=== PATIENT | female | born 1955 | race Hispanic/Latino ===

== ENCOUNTER 2016-12-16 12:18 | Inpatient (IN) | payer OTHER ==
[~2016-12-16] VITALS: Ht 157.5 cm; Wt 75.1 kg
[2016-12-16] MEDS ORDERED: BRIL90TA PO (12:35)
[2016-12-16] MEDS ORDERED: NOVOINJ3 SC (12:35)
[2016-12-16] MEDS ORDERED: NEUR800T PO (12:35)
[2016-12-16] MEDS ORDERED: COZA50TA PO (12:35)
[2016-12-16] MEDS ORDERED: CORE25TA PO (12:35)
[2016-12-16] MEDS ORDERED: ASPI1TAB PO (12:35)
[2016-12-16] MEDS ORDERED: BACL10TA2 PO (12:35)
[2016-12-16] MEDS ORDERED: INSULADS INJ (12:35)
[2016-12-16] MEDS ORDERED: RANO5TAB PO (12:35)
[2016-12-16] MEDS ORDERED: NITR4TASL SL (12:35)
[2016-12-16] MEDS ORDERED: LOSA50TA20 PO (12:35)
[2016-12-16] MEDS ORDERED: CARV25TA PO (12:35)
[2016-12-16] MEDS ORDERED: LIPI20TA PO (12:35)
[2016-12-16] MEDS ORDERED: ASPIRIN 81 MG CHEW TABLET PO ONE (13:15)
[2016-12-16] MEDS ORDERED: ONDANSETRON 4MG/2ML VIAL (J2405) IV ONE (13:15)
[2016-12-16] MEDS ORDERED: NS 500 ML IV ONE (13:15)
[2016-12-16 14:19] LABS: BASO % 0.4 % (0.0-1.0); EOS # 0.1 10^3/uL (0.0-0.50); EOS % 0.6 % (0.0-3.0); IMMATURE GRANULOCYTE % 0.3 % (0-0); LYMPH # 2.9 10^3/uL (1.5-4.5); LYMPH % 25.7 % (24.0-44.0); MEAN CORPUSCULAR HEMOGLOBIN 28.3 pg (27.0-33.0); MEAN CORPUSCULAR HGB CONC 32.6 g/dl (32.0-36.5); MEAN CORPUSCULAR VOLUME 86.7 fl (80.0-96.0); MONO # 0.8 10^3/uL (0.0-0.8); MONO % 7.2 % (0.0-5.0); NEUTROPHILS # 7.4 10^3/uL (1.8-7.7); NEUTROPHILS % 65.8 % (36.0-66.0); PLATELET COUNT, AUTOMATED 430 10^3/uL (150-450); RED CELL DISTRIBUTION WIDTH 15.9 % (11.5-14.5); WHITE BLOOD COUNT 11.2 10^3/uL (4.0-10.0)
[2016-12-16 14:21] LABS: INR 1.06
[2016-12-16 14:54] LABS: ALBUMIN 3.1 GM/DL (3.2-5.2); ALBUMIN/GLOBULIN RATIO 0.63 (1.00-1.93); ALKALINE PHOSPHATASE 167 U/L (45-117); ALT/SGPT 22 U/L (12-78); ANION GAP 9 MEQ/L (8-16); AST/SGOT 16 U/L (15-37); BILIRUBIN,DIRECT 0.1 MG/DL (0.0-0.2); BLOOD UREA NITROGEN 15 MG/DL (7-18); CALCIUM LEVEL 8.4 MG/DL (8.8-10.2); CARBON DIOXIDE LEVEL 23 MEQ/L (21-32); CHLORIDE LEVEL 105 MEQ/L (98-107); CREATININE FOR GFR 0.74 MG/DL (0.55-1.02); FREE T4 1.39 NG/DL (0.76-1.46); GLOMERULAR FILTRATION RATE > 60.0 (>45); GLUCOSE, FASTING 123 MG/DL (80-110); POTASSIUM SERUM 4.2 MEQ/L (3.5-5.1); SODIUM LEVEL 137 MEQ/L (136-145)
[2016-12-16 15:00] LABS: BILIRUBIN,TOTAL 0.5 MG/DL (0.2-1.0)
--- NOTE | 2016-12-16 15:06 | REP ---
PORTABLE CHEST: AP portable view of the chest is performed. There are no prior studies for comparison. No infiltrate is seen. There appears to be mild bibasilar fibroatelectatic change. Heart is not significantly enlarged. Mediastinal silhouette is unremarkable. IMPRESSION: Bibasilar fibroatelectatic change without acute infiltrate. Signed by Bo Castillo MD 12/16/2016 04:13 P
[2016-12-16] MEDS ORDERED: ISOVUE-370 76% 100ML VIAL (Q9967) As Ordered ONE (15:08)
--- NOTE | 2016-12-16 16:03 | REP ---
CT abdomen and pelvis with IV but without oral contrast: History: Abdominal pain. CT contrast dose: 100 ml of intravenous Isovue 370. CT findings: Preliminary digital audit consultant radiograph is unremarkable. The patient was apparently unable to raise the arms above her head. The lung bases show a few areas of alveolar opacity in the right lower lobe and mild linear fibrosis in the left base. There is a granulomatous calcification in the left lower lobe. The liver and the spleen are normal in size, homogeneous in texture. The gallbladder and the pancreas are unremarkable. No adrenal lesion is seen. The kidneys enhance symmetrically are morphologically intact bilaterally. A normal air-filled appendix is visible in the right lower quadrant. Normal caliber aorta is seen. No uterine or ovarian abnormality is seen. Urinary bladder is intact. No abdominal wall defect is observed. Bone window settings show no bony destructive lesion. Impression: No acute intra-abdominal abnormality. Normal appendix seen. Patchy alveolar opacities in the right lower lobe of the lung could conceivably be inflammatory, although they are quite mild. Signed by Moises Winchester MD 12/16/2016 04:26 P
[2016-12-16] MEDS ORDERED: cefTRIAXone SOD 1 GM in D5W 50 ML IV ONE (16:15)
[2016-12-16] MEDS ORDERED: AZITHROMYCIN INJ 500 MG, VIAL MATE ADAPTER 1 EACH in D5W 250 ML IV ONE (16:15)
[2016-12-16] MEDS ORDERED: GABA-282 PO (16:18)
[2016-12-16] MEDS ORDERED: IPRATROPIUM 0.5MG/ALBUTEROL 2.5MG INH SOL UD 3ML (DUONEB)(J7620) NEB ONE (16:30)
[2016-12-16] MEDS: NS 1,000 ML IV SCH (18:02)
[2016-12-16] MEDS ORDERED: NITROGLYCERIN 0.4 MG SUBL TABLET SL PRN (18:15)
[2016-12-16] MEDS ORDERED: ACETAMINOPHEN TAB 650MG DOSE (2X325MG) PO PRN (18:15)
[2016-12-16] MEDS ORDERED: GLUCAGON FOR INJ 1 MG VIAL (J1610) SC PRN (18:45)
[2016-12-16] MEDS ORDERED: GLUCOSE 4 GM CHEW TABLET PO PRN (18:45)
[2016-12-16] MEDS ORDERED: DEXTROSE 50% 50 ML SYRINGE IV PRN (18:45)
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
[2016-12-16] MEDS: HumaLOG INSULIN (NovoLOG) PER UNIT SC SCH (21:00)
[2016-12-16] MEDS: CARVedilol 12.5 MG TAB PO SCH (21:00)
[2016-12-16] MEDS: TICAGRELOR 90 MG TABLET (BRILINTA) PO SCH (21:00)
[2016-12-16] MEDS: GABAPENTIN 300 MG CAP PO SCH (21:00)
[2016-12-16] MEDS: BACLOFEN 10 MG TAB PO SCH (21:00)
[2016-12-16] MEDS ORDERED: LEVEMIR (INSULIN DETEMIR) 1 UNITS/0.01ML SC SCH (21:00)
[2016-12-16] MEDS: METOCLOPRAMIDE INJ 10MG/2ML VIAL (J2765) IV PRN (22:20)
[2016-12-17 01:15] VITALS: BP 120/57
[2016-12-17] MEDS: RANOLAZINE 500 MG ER TAB PO SCH ×3 (01:48→20:57)
--- NOTE | 2016-12-17 05:39 | ECGEPIP ---
Stationary ECG Study [facility] - ED Test Date: 2016-12-16 Pat Name: MARIANGEL MEDLEY Department: Room: [place] [address] Gender: F Keycase Assembler: linda : [id number] Requested By: Calin Suarez Order Number: [id number] Reading MD: Calin Irvin Measurements Intervals [place] Rate: 81 P: 68 AR: 139 QRS: 31 QRSD: 73 T: 127 QT: 364 QTc: 424 Interpretive Statements SINUS RHYTHM ST DEVIATION AND MODERATE T-WAVE ABNORMALITY, CONSIDER LATERAL ISCHEMIA NO PRIORS Electronically Signed On 12-17-2016 5:38:54 EDT by Calin Irvin
[2016-12-17 06:00] VITALS: BP 136/63
[2016-12-17 06:01] LABS: MEAN CORPUSCULAR HEMOGLOBIN 27.8 pg (27.0-33.0); MEAN CORPUSCULAR HGB CONC 31.6 g/dl (32.0-36.5); RED CELL DISTRIBUTION WIDTH 16.1 % (11.5-14.5); WHITE BLOOD COUNT 12.6 10^3/uL (4.0-10.0)
[2016-12-17 06:18] LABS: ANION GAP 9 MEQ/L (8-16); BLOOD UREA NITROGEN 14 MG/DL (7-18); CALCIUM LEVEL 8.1 MG/DL (8.8-10.2); CARBON DIOXIDE LEVEL 24 MEQ/L (21-32); CHLORIDE LEVEL 107 MEQ/L (98-107); CREATININE FOR GFR 0.78 MG/DL (0.55-1.02); GLOMERULAR FILTRATION RATE > 60.0 (>45); GLUCOSE, FASTING 61 MG/DL (80-110); POTASSIUM SERUM 3.6 MEQ/L (3.5-5.1); SODIUM LEVEL 140 MEQ/L (136-145)
[2016-12-17] MEDS ORDERED: HumaLOG INSULIN (NovoLOG) PER UNIT SC SCH (07:30)
[2016-12-17] MEDS: HumaLOG INSULIN (NovoLOG) PER UNIT SC SCH ×4 (08:00→21:00)
[2016-12-17] MEDS ORDERED: ACETAMINOPHEN 325 MG TAB PO ONE (09:00)
[2016-12-17] MEDS: NS 1,000 ML IV SCH ×2 (10:14→20:56)
[2016-12-17] MEDS: METOCLOPRAMIDE INJ 10MG/2ML VIAL (J2765) IV PRN ×2 (10:14→20:57)
[2016-12-17] MEDS: ASPIRIN 81 MG ENTERIC TAB PO SCH (10:15)
[2016-12-17] MEDS: TICAGRELOR 90 MG TABLET (BRILINTA) PO SCH ×2 (10:15→20:57)
[2016-12-17] MEDS: ENOXAPARIN 40 MG/0.4 ML SYRINGE (J1650) SC SCH (10:15)
[2016-12-17] MEDS: GABAPENTIN 300 MG CAP PO SCH ×3 (10:15→20:57)
[2016-12-17] MEDS: BACLOFEN 10 MG TAB PO SCH ×3 (10:16→20:57)
[2016-12-17] MEDS: ATORVASTATIN 20 MG TAB PO SCH (10:16)
[2016-12-17] MEDS: LOSARTAN 50 MG TAB PO SCH (10:19)
[2016-12-17] MEDS: CARVedilol 12.5 MG TAB PO SCH ×2 (10:19→20:57)
[2016-12-17] MEDS: PANTOPRAZOLE 40MG INJ (PROTONIX) (C9113) IV SCH (10:20)
--- NOTE | 2016-12-17 10:59 | IPNPDOC ---
Subjective Date Seen The patient was seen on 12/17/16. Subjective Chief Complaint/HPI The patient is a 61-year-old female admitted with a reason for visit of Diarrhea. Events since last encounter She states that she did have one episode of abdominal pain with nausea and vomiting last night. She was given 1 dose of Reglan and this has resolved since. She does have a small headache this morning, therefore this will be treated with Tylenol. We will continue with IV fluids as well. Otherwise, she denies having any nausea at this time, she had no additional episodes of vomiting. Upon further questioning, she states she has never had any issues with chewing or swallowing her food, she does not choke or cough while eating, and I suspect that she is not aspirating, but rather most likely had a violent episode of vomiting in the emergency department. General: Denies: Normal Appetite Constitutional: Reports: Malaise, Weakness, Fatigue, Denies: Chills, Fever, Night Sweats ENT: Reports: Head Aches, Denies: Sore Throat Skin: Denies: Rash, Lesions, Bruising Pulmonary: Denies: Dyspnea, Cough, Pleuritic Chest Pain Cardiovascular: Denies: Chest Pain, Palpitations, Orthopnea, Lt Headedness Gastrointestinal: Reports: Nausea, Vomiting, Abdominal Pain, Other Symptoms ( she had loose stool yesterday, however she has not had a bowel movement since that time.), Denies: Diarrhea, Constipation Genitourinary: Denies: Dysuria, Frequency, Incontinence Neurological: Reports: Weakness Psych: Reports: Mood Normal, Denies: Anxiety, Depression Objective Physical Examination General Exam: Positive: Alert, Cooperative, Mild Distress Eye Exam: Positive: Conjunctiva & lids normal, EOMI, Negative: Sclera icteric ENT Exam: Positive: Atraumatic, Mucous membr. moist/pink, Pharynx Normal Neck Exam: Positive: Supple, Negative: JVD Chest Exam: Positive: Clear to auscultation, Normal air movement, Negative: Rales, Rhonchi, Wheezing, Diminished Heart Exam: Positive: Rate Normal, Regular Rhythm, Negative: Murmurs, Rubs Abdomen Exam: Positive: BS Hypoactive, Soft, Tenderness (only minimal generalized tenderness in the abdomen today), Negative: Hepatospenomegaly Extremity Exam: Positive: Normal pulses, Negative: Clubbing, Cyanosis, Edema Skin Exam: Positive: Nl turgor and temperature, Negative: Breakdown, Lesion Neuro Exam: Positive: Other (chronic weakness in the bilateral lower extremities and left upper extremity from multiple CVAs and advanced multiple sclerosis) Psych Exam: Positive: Mental status NL, Mood NL, Oriented x 3 Assessment /Plan Problems (1) Gastritis Status: Acute Problem Text: The patient reports that she is tolerating some liquids by mouth , therefore we'll switch her diet to full liquids, and then she can advance as tolerated. We will continue with Reglan as needed for nausea. (2) Vomiting Status: Acute (3) Abdominal pain Status: Acute (4) Loose stools Status: Acute Problem Text: GI panel is still pending as she was not able to produce a sample during the night. (5) Pneumonia Status: Resolved Problem Text: It is questionable as to whether she actually had an aspiration event. She does not complain of any chest pain, shortness of breath, or cough. She is 100% on room air this morning. She has never had any trouble chewing or swallowing her food, she does not cough while eating, and she does not have a history of choking on food. Apparently the official read from the radiologist is different than the ED read on the chest x-ray that was obtained yesterday, now the official read states: Bibasilar fibroatelectatic changes with no acute infiltrate. In the absence of symptoms, I do not even think it is necessary to repeat a chest x-ray. We will allow her to eat what she can tolerate and continue to monitor. (6) Chest pain Status: Resolved (7) Diabetes mellitus with insulin therapy Status: Chronic Problem Text: Because she is not eating well, we will hold her Lantus, and only do sliding scale coverage before meals and at bedtime. (8) Multiple sclerosis Status: Chronic Problem Text: She has attempted multiple drugs for multiple sclerosis over the years, Which have given her any relief, many of which have had intolerable side effects. She is no longer taking any treatment for this. (9) Presence of stent in coronary artery in patient with coronary artery disease Status: Chronic Problem Text: Continue with aspirin, Ranexa, nitroglycerin as needed, and Brilinta (10) Peripheral vascular disease Status: Chronic (11) History of cerebrovascular accident Status: Chronic Problem Text: Continue with atorvastatin, although I would recommend having a discussion with her about moving to a high intensity statin, it is unclear as to why she is on lower dose at this time. (12) History of myocardial infarction Status: Chronic Problem Text: Continue with carvedilol (13) Osteoporosis Status: Chronic (14) Hypertension Status: Chronic Problem Text: Continue with losartan and carvedilol with hold parameters (15) Trigeminal neuralgia of right side of face Status: Chronic Problem Text: Continue with gabapentin Plan/VTE VTE Prophylaxis Ordered?: Yes (Lovenox) VS, I&O, 24H, Fishbone Vital Signs/I&O Vital Signs Date Time Temp Pulse Resp B/P (MAP) Pulse Ox O2 Delivery O2 Flow Rate FiO2 12/17/16 10:19 135/68 12/17/16 10:19 83 12/17/16 06:00 97.8 16 100 Room Air I&O- Last 24 Hours up to 6 AM 12/18/16 06:00 Intake Total 0 ml Output Total 0 ml Balance 0 ml Laboratory Data 24H LABS Laboratory Tests 2 12/16/16 13:56: Immature Granulocyte % (Auto) 0.3H, White Blood Count 11.2H, Red Blood Count 4.21, Hemoglobin 11.9L, Hematocrit 36.5, Mean Corpuscular Volume 86.7, Mean Corpuscular Hemoglobin 28.3, Mean Corpuscular Hemoglobin Concent 32.6, Red Cell Distribution Width 15.9H, Platelet Count 430, Neutrophils (%) (Auto) 65.8, Lymphocytes (%) (Auto) 25.7, Monocytes (%) (Auto) 7.2H, Eosinophils (%) (Auto) 0.6, Basophils (%) (Auto) 0.4, Neutrophils # (Auto) 7.4, Lymphocytes # (Auto) 2.9, Monocytes # (Auto) 0.8, Eosinophils # (Auto) 0.1, Basophils # (Auto) 0.0, Immature Granulocyte # (Auto) 0.0, Nucleated Red Blood Cells % (auto) 0.0, Prothrombin Time 13.9, Prothromb Time International Ratio 1.06, Activated Partial Thromboplast Time 27.3, Anion Gap 9, Glomerular Filtration Rate > 60.0, Calcium Level 8.4L, Aspartate Amino Transf (AST/SGOT) 16, Alanine Aminotransferase (ALT/SGPT) 22, Alkaline Phosphatase 167H, Total Bilirubin 0.5, Direct Bilirubin 0.1, Total Creatine Kinase 161, Creatine Kinase MB 2.2, Creatine Kinase MB Relative Index 1.36, Troponin I < 0.02, Total Protein 8.0, Albumin 3.1L, Albumin/Globulin Ratio 0.63L, Lipase 54L, Thyroid Stimulating Hormone (TSH) 2.430, Free Thyroxine 1.39 12/16/16 21:49: Bedside Glucose (Misc Panel) 126H 12/17/16 05:24: Anion Gap 9, Glomerular Filtration Rate > 60.0, Calcium Level 8.1L, Estimated Mean Plasma Glucose 197H, Hemoglobin A1c 8.5H, Blood Urea Nitrogen 14, Creatinine 0.78, Sodium Level 140, Potassium Level 3.6, Chloride Level 107, Carbon Dioxide Level 24 12/17/16 06:51: Bedside Glucose (Misc Panel) 64L 12/17/16 07:40: Bedside Glucose (Misc Panel) 95 CBC/BMP Laboratory Tests 12/16/16 13:56 Red Blood Count 4.21, Mean Corpuscular Volume 86.7, Mean Corpuscular Hemoglobin 28.3, Mean Corpuscular Hemoglobin Concent 32.6, Red Cell Distribution Width 15.9 H, Neutrophils (%) (Auto) 65.8, Lymphocytes (%) (Auto) 25.7, Monocytes (%) (Auto) 7.2 H, Eosinophils (%) (Auto) 0.6, Basophils (%) (Auto) 0.4, Neutrophils # (Auto) 7.4, Lymphocytes # (Auto) 2.9, Monocytes # (Auto) 0.8, Eosinophils # ( Auto) 0.1, Basophils # (Auto) 0.0 12/17/16 05:24 Red Blood Count 3.67 L, Mean Corpuscular Volume 88.0, Mean Corpuscular Hemoglobin 27.8, Mean Corpuscular Hemoglobin Concent 31.6 L, Red Cell Distribution Width 16.1 H, Calcium Level 8.1 L Microbiology Microbiology 12/16/16 Blood Culture, Received Pending 12/16/16 Blood Culture, Received Pending LAZARA ZUNIGA DO Dec 17, 2016 10:59
[2016-12-17 14:00] VITALS: BP 135/65
[2016-12-17] MEDS ORDERED: LevoFLOXacin IV 750 MG in APPROPRIATE DILUENT 1 EA IV SCH (18:00)
[2016-12-17 22:00] VITALS: BP 131/60
[2016-12-18 06:00] VITALS: BP 148/74
[2016-12-18 06:20] LABS: MEAN CORPUSCULAR HEMOGLOBIN 28.2 pg (27.0-33.0); MEAN CORPUSCULAR HGB CONC 31.9 g/dl (32.0-36.5); MEAN CORPUSCULAR VOLUME 88.5 fl (80.0-96.0); WHITE BLOOD COUNT 10.2 10^3/uL (4.0-10.0)
[2016-12-18 06:39] LABS: ANION GAP 8 MEQ/L (8-16); BLOOD UREA NITROGEN 8 MG/DL (7-18); CALCIUM LEVEL 8.3 MG/DL (8.8-10.2); CARBON DIOXIDE LEVEL 24 MEQ/L (21-32); CHLORIDE LEVEL 110 MEQ/L (98-107); CREATININE FOR GFR 0.83 MG/DL (0.55-1.02); GLOMERULAR FILTRATION RATE > 60.0 (>45); GLUCOSE, FASTING 189 MG/DL (80-110); POTASSIUM SERUM 4.2 MEQ/L (3.5-5.1); SODIUM LEVEL 142 MEQ/L (136-145)
[2016-12-18] MEDS: GABAPENTIN 300 MG CAP PO SCH (08:31)
[2016-12-18] MEDS: PANTOPRAZOLE 40MG INJ (PROTONIX) (C9113) IV SCH (08:31)
[2016-12-18] MEDS: CARVedilol 12.5 MG TAB PO SCH (08:32)
[2016-12-18] MEDS: ASPIRIN 81 MG ENTERIC TAB PO SCH (08:32)
[2016-12-18] MEDS: ATORVASTATIN 20 MG TAB PO SCH (08:32)
[2016-12-18] MEDS: BACLOFEN 10 MG TAB PO SCH (08:32)
[2016-12-18 08:33] VITALS: BP 181/85
[2016-12-18] MEDS: LOSARTAN 50 MG TAB PO SCH (08:33)
[2016-12-18] MEDS: TICAGRELOR 90 MG TABLET (BRILINTA) PO SCH (08:33)
[2016-12-18] MEDS: ENOXAPARIN 40 MG/0.4 ML SYRINGE (J1650) SC SCH (08:34)
[2016-12-18] MEDS: HumaLOG INSULIN (NovoLOG) PER UNIT SC SCH ×2 (08:34→12:18)
[2016-12-18] MEDS: RANOLAZINE 500 MG ER TAB PO SCH (08:34)
[2016-12-18] MEDS: NS 1,000 ML IV SCH (08:35)
[2016-12-18] MEDS ORDERED: LEVEMIR (INSULIN DETEMIR) 1 UNITS/0.01ML SC SCH (09:00)
[2016-12-18 10:24] VITALS: BP 156/72
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
== END 2016-12-18 12:28 | disposition home or self-care (01) | DRG 241 ==
LOC: M ED 12:18 → M ED INP 17:40 → M MSPAV 12-17 01:12
PROVIDERS: ADMIT Internal Medicine; ATTEND Internal Medicine Nephrology
DX: K29.00 Acute gastritis without bleeding (principal); G35 Multiple sclerosis; I10 Essential (primary) hypertension; I25.10 Atherosclerotic heart disease of native coronary artery without angina pectoris; E11.9 Type 2 diabetes mellitus without complications; Z79.4 Long term (current) use of insulin; I25.2 Old myocardial infarction; I73.9 Peripheral vascular disease, unspecified; Z86.73 Personal history of transient ischemic attack (TIA), and cerebral infarction without residual deficits; Z79.82 Long term (current) use of aspirin; Z79.899 Other long term (current) drug therapy; G50.0 Trigeminal neuralgia; M81.0 Age-related osteoporosis without current pathological fracture; Z95.2 Presence of prosthetic heart valve; Z88.2 Allergy status to sulfonamides

== ENCOUNTER 2017-04-28 21:39 | Inpatient (IN) | payer OTHER ==
[2017-04-28] MEDS: ONDANSETRON 4MG/2ML VIAL (J2405) IV (23:22)
[2017-04-28] MEDS: MORPHINE 4 MG/ML 1ML VIAL (J2270) IV (23:22)
[2017-04-28] MEDS: NS 500 ML IV (23:25)
[2017-04-28 23:39] LABS: BASO # 0.1 10^3/uL (0.0-0.2); BASO % 0.5 % (0.0-1.0); EOS # 0.2 10^3/uL (0.0-0.50); EOS % 1.6 % (0.0-3.0); HEMATOCRIT 36.3 % (36.0-47.0); HEMOGLOBIN 12.1 g/dl (12.0-16.0); IMMATURE GRANULOCYTE % 0.4 % (0-3.0); LYMPH # 2.7 10^3/uL (1.5-4.5); LYMPH % 20.4 % (24.0-44.0); MEAN CORPUSCULAR HEMOGLOBIN 29.4 pg (27.0-33.0); MEAN CORPUSCULAR HGB CONC 33.3 g/dl (32.0-36.5); MEAN CORPUSCULAR VOLUME 88.1 fl (80.0-96.0); MONO # 1.1 10^3/uL (0.0-0.8); MONO % 7.8 % (0.0-5.0); NEUTROPHILS # 9.3 10^3/uL (1.8-7.7); NEUTROPHILS % 69.3 % (36.0-66.0); PLATELET COUNT, AUTOMATED 463 10^3/uL (150-450); RED BLOOD COUNT 4.12 10^6/uL (4.00-5.40); RED CELL DISTRIBUTION WIDTH 14.3 % (11.5-14.5); WHITE BLOOD COUNT 13.4 10^3/uL (4.0-10.0)
[2017-04-28 23:51] LABS: INR 1.09; PROTHROMBIN TIME 14.3 SECONDS (12.4-14.5)
[2017-04-28 23:52] LABS: PARTIAL THROMBOPLASTIN TIME 28.4 SECONDS (26.8-37.9)
[2017-04-29 00:13] LABS: ALBUMIN 3.4 GM/DL (3.2-5.2); ALBUMIN/GLOBULIN RATIO 0.69 (1.00-1.93); ALKALINE PHOSPHATASE 155 U/L (45-117); ALT/SGPT 20 U/L (12-78); ANION GAP 12 MEQ/L (8-16); AST/SGOT 16 U/L (7-37); BILIRUBIN,DIRECT 0.1 MG/DL (0.0-0.2); BILIRUBIN,TOTAL 0.6 MG/DL (0.2-1.0); BLOOD UREA NITROGEN 15 MG/DL (7-18); CALCIUM LEVEL 8.5 MG/DL (8.8-10.2); CARBON DIOXIDE LEVEL 22 MEQ/L (21-32); CHLORIDE LEVEL 104 MEQ/L (98-107); CK-MB VALUE MASS 3.5 NG/ML (0.0-3.6); CPK CREATINE PHOSPHOKINASE 117 U/L (26-192); CREATININE FOR GFR 0.85 MG/DL (0.55-1.30); GLOMERULAR FILTRATION RATE > 60.0 (>45); GLUCOSE, FASTING 246 MG/DL (70-100); LIPASE 56 U/L (73-393); MB/CK RELATIVE INDEX 2.99 (< OR =4); POTASSIUM SERUM 4.1 MEQ/L (3.5-5.1); SODIUM LEVEL 138 MEQ/L (136-145); TOTAL PROTEIN 8.3 GM/DL (6.4-8.2); TROPONIN I < 0.02 NG/ML (< 0.10)
[2017-04-29] MEDS ORDERED: ISOVUE-370 76% 100ML VIAL (Q9967) As Ordered (00:53)
[2017-04-29] MEDS: METOCLOPRAMIDE INJ 10MG/2ML VIAL (J2765) IV (02:45)
[2017-04-29] MEDS ORDERED: GLUCOSE 4 GM CHEW TABLET PO (04:00)
[2017-04-29] MEDS: NS 1,000 ML IV (04:00)
[2017-04-29] MEDS ORDERED: GLUCAGON FOR INJ 1 MG VIAL (J1610) SC (04:00)
[2017-04-29] MEDS ORDERED: DEXTROSE 50% 50 ML SYRINGE IV (04:00)
[2017-04-29] MEDS: CIPROFLOXACIN 400 MG in APPROPRIATE DILUENT 1 EA IV ×2 (05:00→16:25)
[2017-04-29 05:15] LABS: LACTIC ACID SEPSIS PROTOCOL 0.8 MMOL/L (0.4-2.0)
[2017-04-29] MEDS: ONDANSETRON 4MG/2ML VIAL (J2405) IV ×2 (05:37→16:59)
[2017-04-29] MEDS ORDERED: NITROGLYCERIN 0.4 MG SUBL TABLET SL (06:00)
[2017-04-29] MEDS: metroNIDAZOLE 500 MG in APPROPRIATE DILUENT 1 EA IV ×3 (06:53→21:22)
[2017-04-29] MEDS: PANTOPRAZOLE 40MG INJ (PROTONIX) (C9113) IV (08:45)
[2017-04-29] MEDS: HumaLOG INSULIN (NovoLOG) PER UNIT SC ×4 (08:46→21:32)
[2017-04-29] MEDS: ENOXAPARIN 40 MG/0.4 ML SYRINGE (J1650) SC (08:47)
[2017-04-29] MEDS: LEVEMIR (INSULIN DETEMIR) 1 UNITS/0.01ML SC ×2 (08:47→21:22)
[2017-04-29] MEDS: RANOLAZINE 500 MG ER TAB PO ×2 (08:47→21:21)
[2017-04-29] MEDS: LOSARTAN 50 MG TAB PO (08:47)
[2017-04-29] MEDS: TICAGRELOR 90 MG TABLET (BRILINTA) PO ×2 (08:48→21:21)
[2017-04-29] MEDS: GABAPENTIN 400 MG CAP PO ×3 (08:48→21:21)
[2017-04-29] MEDS: BACLOFEN 10 MG TAB PO ×3 (08:48→21:21)
[2017-04-29] MEDS: ASPIRIN 81 MG ENTERIC TAB PO (08:48)
[2017-04-29] MEDS: CARVedilol 12.5 MG TAB PO ×2 (08:48→21:00)
[2017-04-29] MEDS: ATORVASTATIN 20 MG TAB PO (08:48)
[2017-04-29] MEDS: MORPHINE 4 MG/ML 1ML VIAL (J2270) IV (08:49)
[2017-04-29] MEDS ORDERED: LEVEMIR (INSULIN DETEMIR) 1 UNITS/0.01ML SC (09:00)
[2017-04-29] MEDS ORDERED: PROCHLORPERAZINE 10 MG/2 ML VIAL (J0780) IV (12:45)
[2017-04-30] MEDS: CIPROFLOXACIN 400 MG in APPROPRIATE DILUENT 1 EA IV ×2 (04:57→16:54)
[2017-04-30] MEDS: metroNIDAZOLE 500 MG in APPROPRIATE DILUENT 1 EA IV ×3 (06:03→20:38)
[2017-04-30 06:19] LABS: BASO # 0.1 10^3/uL (0.0-0.2); BASO % 0.4 % (0.0-1.0); EOS # 0.4 10^3/uL (0.0-0.50); EOS % 3.6 % (0.0-3.0); HEMATOCRIT 31.6 % (36.0-47.0); HEMOGLOBIN 10.2 g/dl (12.0-16.0); IMMATURE GRANULOCYTE % 0.3 % (0-3.0); LYMPH # 4.1 10^3/uL (1.5-4.5); LYMPH % 35.8 % (24.0-44.0); MEAN CORPUSCULAR HEMOGLOBIN 29.4 pg (27.0-33.0); MEAN CORPUSCULAR HGB CONC 32.3 g/dl (32.0-36.5); MEAN CORPUSCULAR VOLUME 91.1 fl (80.0-96.0); MONO # 1.3 10^3/uL (0.0-0.8); MONO % 11.2 % (0.0-5.0); NEUTROPHILS # 5.6 10^3/uL (1.8-7.7); NEUTROPHILS % 48.7 % (36.0-66.0); PLATELET COUNT, AUTOMATED 377 10^3/uL (150-450); RED BLOOD COUNT 3.47 10^6/uL (4.00-5.40); RED CELL DISTRIBUTION WIDTH 14.5 % (11.5-14.5); WHITE BLOOD COUNT 11.5 10^3/uL (4.0-10.0)
[2017-04-30 06:41] LABS: ALBUMIN 2.9 GM/DL (3.2-5.2); ALBUMIN/GLOBULIN RATIO 0.71 (1.00-1.93); ALKALINE PHOSPHATASE 111 U/L (45-117); ALT/SGPT 13 U/L (12-78); ANION GAP 8 MEQ/L (8-16); AST/SGOT 8 U/L (7-37); BILIRUBIN,TOTAL 0.3 MG/DL (0.2-1.0); BLOOD UREA NITROGEN 14 MG/DL (7-18); CARBON DIOXIDE LEVEL 24 MEQ/L (21-32); CHLORIDE LEVEL 108 MEQ/L (98-107); CREATININE FOR GFR 0.93 MG/DL (0.55-1.30); GLOMERULAR FILTRATION RATE > 60.0 (>45); GLUCOSE, FASTING 155 MG/DL (70-100); MAGNESIUM LEVEL 2.1 MG/DL (1.8-2.4); POTASSIUM SERUM 3.7 MEQ/L (3.5-5.1); SODIUM LEVEL 140 MEQ/L (136-145)
[2017-04-30] MEDS: LEVEMIR (INSULIN DETEMIR) 1 UNITS/0.01ML SC ×2 (08:42→20:39)
[2017-04-30] MEDS: HumaLOG INSULIN (NovoLOG) PER UNIT SC ×4 (08:42→21:00)
[2017-04-30] MEDS: ENOXAPARIN 40 MG/0.4 ML SYRINGE (J1650) SC (08:43)
[2017-04-30] MEDS: TICAGRELOR 90 MG TABLET (BRILINTA) PO ×2 (08:43→20:39)
[2017-04-30] MEDS: CARVedilol 12.5 MG TAB PO ×2 (08:45→20:39)
[2017-04-30] MEDS: ATORVASTATIN 20 MG TAB PO (08:45)
[2017-04-30] MEDS: BACLOFEN 10 MG TAB PO ×3 (08:45→20:39)
[2017-04-30] MEDS: ASPIRIN 81 MG ENTERIC TAB PO (08:45)
[2017-04-30] MEDS: LOSARTAN 50 MG TAB PO (08:45)
[2017-04-30] MEDS: RANOLAZINE 500 MG ER TAB PO ×2 (08:45→20:39)
[2017-04-30] MEDS: GABAPENTIN 400 MG CAP PO ×3 (08:46→20:38)
[2017-04-30] MEDS: PANTOPRAZOLE 40MG INJ (PROTONIX) (C9113) IV (09:51)
[2017-04-30 21:15] LABS: BEDSIDE GLUCOSE 141 MG/DL (80-115)
[2017-05-01 02:39] LABS: BEDSIDE GLUCOSE 205 MG/DL (80-115)
[2017-05-01 02:39] LABS: BEDSIDE GLUCOSE 251 MG/DL (80-115)
[2017-05-01 02:39] LABS: BEDSIDE GLUCOSE 251 MG/DL (80-115)
[2017-05-01 02:39] LABS: BEDSIDE GLUCOSE 260 MG/DL (80-115)
[2017-05-01 02:39] LABS: BEDSIDE GLUCOSE 105 MG/DL (80-115)
[2017-05-01] MEDS: CIPROFLOXACIN 400 MG in APPROPRIATE DILUENT 1 EA IV (04:53)
[2017-05-01] MEDS: metroNIDAZOLE 500 MG in APPROPRIATE DILUENT 1 EA IV ×2 (04:53→14:10)
[2017-05-01 06:33] LABS: BASO # 0.1 10^3/uL (0.0-0.2); BASO % 0.5 % (0.0-1.0); EOS # 0.5 10^3/uL (0.0-0.50); EOS % 4.2 % (0.0-3.0); HEMOGLOBIN 10.7 g/dl (12.0-16.0); IMMATURE GRANULOCYTE % 0.3 % (0-3.0); LYMPH # 3.7 10^3/uL (1.5-4.5); LYMPH % 33.8 % (24.0-44.0); MEAN CORPUSCULAR HEMOGLOBIN 29.2 pg (27.0-33.0); MEAN CORPUSCULAR HGB CONC 32.4 g/dl (32.0-36.5); MEAN CORPUSCULAR VOLUME 89.9 fl (80.0-96.0); MONO # 1.1 10^3/uL (0.0-0.8); MONO % 10.2 % (0.0-5.0); NEUTROPHILS # 5.6 10^3/uL (1.8-7.7); PLATELET COUNT, AUTOMATED 389 10^3/uL (150-450); RED BLOOD COUNT 3.67 10^6/uL (4.00-5.40); RED CELL DISTRIBUTION WIDTH 14.5 % (11.5-14.5)
[2017-05-01 06:58] LABS: ALBUMIN 2.9 GM/DL (3.2-5.2); ALBUMIN/GLOBULIN RATIO 0.69 (1.00-1.93); ALKALINE PHOSPHATASE 119 U/L (45-117); ALT/SGPT 16 U/L (12-78); ANION GAP 7 MEQ/L (8-16); AST/SGOT 15 U/L (7-37); BILIRUBIN,TOTAL 0.3 MG/DL (0.2-1.0); BLOOD UREA NITROGEN 9 MG/DL (7-18); CALCIUM LEVEL 8.2 MG/DL (8.8-10.2); CARBON DIOXIDE LEVEL 26 MEQ/L (21-32); CHLORIDE LEVEL 110 MEQ/L (98-107); GLOMERULAR FILTRATION RATE > 60.0 (>45); GLUCOSE, FASTING 85 MG/DL (70-100); MAGNESIUM LEVEL 2.2 MG/DL (1.8-2.4); POTASSIUM SERUM 3.7 MEQ/L (3.5-5.1); SODIUM LEVEL 143 MEQ/L (136-145); TOTAL PROTEIN 7.1 GM/DL (6.4-8.2)
[2017-05-01] MEDS: HumaLOG INSULIN (NovoLOG) PER UNIT SC ×4 (07:30→20:56)
[2017-05-01] MEDS: GABAPENTIN 400 MG CAP PO ×3 (08:43→20:55)
[2017-05-01] MEDS: PANTOPRAZOLE 40MG INJ (PROTONIX) (C9113) IV (08:43)
[2017-05-01] MEDS: BACLOFEN 10 MG TAB PO ×3 (08:43→20:55)
[2017-05-01] MEDS: ONDANSETRON 4MG/2ML VIAL (J2405) IV (08:43)
[2017-05-01] MEDS: RANOLAZINE 500 MG ER TAB PO ×2 (08:43→20:54)
[2017-05-01] MEDS: ASPIRIN 81 MG ENTERIC TAB PO (08:43)
[2017-05-01] MEDS: TICAGRELOR 90 MG TABLET (BRILINTA) PO ×2 (08:43→20:55)
[2017-05-01] MEDS: ATORVASTATIN 20 MG TAB PO (08:43)
[2017-05-01] MEDS: ENOXAPARIN 40 MG/0.4 ML SYRINGE (J1650) SC (08:43)
[2017-05-01] MEDS: CARVedilol 12.5 MG TAB PO ×2 (08:44→20:55)
[2017-05-01] MEDS: LEVEMIR (INSULIN DETEMIR) 1 UNITS/0.01ML SC ×2 (08:44→20:56)
[2017-05-01] MEDS: LOSARTAN 50 MG TAB PO (08:44)
[2017-05-01 15:55] LABS: BEDSIDE GLUCOSE 323 MG/DL (80-115)
[2017-05-01] MEDS: ACETAMINOPHEN TAB 650MG DOSE (2X325MG) PO (20:55)
[2017-05-02 07:01] LABS: BASO # 0.1 10^3/uL (0.0-0.2); BASO % 0.5 % (0.0-1.0); EOS # 0.4 10^3/uL (0.0-0.50); EOS % 3.2 % (0.0-3.0); HEMATOCRIT 33.1 % (36.0-47.0); HEMOGLOBIN 10.8 g/dl (12.0-16.0); IMMATURE GRANULOCYTE % 0.3 % (0-3.0); LYMPH % 35.5 % (24.0-44.0); MEAN CORPUSCULAR HGB CONC 32.6 g/dl (32.0-36.5); MEAN CORPUSCULAR VOLUME 88.7 fl (80.0-96.0); MONO # 1.3 10^3/uL (0.0-0.8); MONO % 11.4 % (0.0-5.0); NEUTROPHILS # 5.5 10^3/uL (1.8-7.7); NEUTROPHILS % 49.1 % (36.0-66.0); PLATELET COUNT, AUTOMATED 391 10^3/uL (150-450); RED BLOOD COUNT 3.73 10^6/uL (4.00-5.40); RED CELL DISTRIBUTION WIDTH 14.6 % (11.5-14.5); WHITE BLOOD COUNT 11.1 10^3/uL (4.0-10.0)
[2017-05-02 07:24] LABS: ALBUMIN 2.9 GM/DL (3.2-5.2); ALBUMIN/GLOBULIN RATIO 0.74 (1.00-1.93); ALKALINE PHOSPHATASE 120 U/L (45-117); ALT/SGPT 20 U/L (12-78); ANION GAP 9 MEQ/L (8-16); AST/SGOT 12 U/L (7-37); BILIRUBIN,TOTAL 0.4 MG/DL (0.2-1.0); BLOOD UREA NITROGEN 14 MG/DL (7-18); CALCIUM LEVEL 8.2 MG/DL (8.8-10.2); CARBON DIOXIDE LEVEL 25 MEQ/L (21-32); CHLORIDE LEVEL 106 MEQ/L (98-107); CREATININE FOR GFR 0.78 MG/DL (0.55-1.30); GLOMERULAR FILTRATION RATE > 60.0 (>45); GLUCOSE, FASTING 165 MG/DL (70-100); MAGNESIUM LEVEL 2.3 MG/DL (1.8-2.4); SODIUM LEVEL 140 MEQ/L (136-145); TOTAL PROTEIN 6.8 GM/DL (6.4-8.2)
[2017-05-02] MEDS: HumaLOG INSULIN (NovoLOG) PER UNIT SC ×4 (07:30→21:00)
[2017-05-02] MEDS: MOM 30ML SUSPENSION UDC PO (08:06)
[2017-05-02] MEDS: ENOXAPARIN 40 MG/0.4 ML SYRINGE (J1650) SC (08:07)
[2017-05-02] MEDS: LEVEMIR (INSULIN DETEMIR) 1 UNITS/0.01ML SC ×2 (08:07→22:04)
[2017-05-02] MEDS: RANOLAZINE 500 MG ER TAB PO ×2 (08:07→22:06)
[2017-05-02] MEDS: TICAGRELOR 90 MG TABLET (BRILINTA) PO ×2 (08:07→22:05)
[2017-05-02] MEDS: BISACODYL 5 MG TAB PO (08:07)
[2017-05-02] MEDS: CARVedilol 12.5 MG TAB PO ×2 (08:08→22:06)
[2017-05-02] MEDS: BACLOFEN 10 MG TAB PO ×3 (08:08→22:05)
[2017-05-02] MEDS: LOSARTAN 50 MG TAB PO (08:08)
[2017-05-02] MEDS: GABAPENTIN 400 MG CAP PO ×3 (08:08→22:05)
[2017-05-02] MEDS: ASPIRIN 81 MG ENTERIC TAB PO (08:08)
[2017-05-02] MEDS: ATORVASTATIN 20 MG TAB PO (08:08)
[2017-05-02] MEDS: PANTOPRAZOLE 40MG INJ (PROTONIX) (C9113) IV (08:09)
[2017-05-02] MEDS: ACETAMINOPHEN TAB 650MG DOSE (2X325MG) PO (08:10)
[2017-05-02 15:35] LABS: KETONE, URINE AUTO RFX NEGATIVE (NEGATIVE); LEUKOCYTE ESTERASE UR AUTO RFX TRACE (NEGATIVE); MUCUS, URINE RFX SMALL (NEGATIVE); NITRITE, URINE AUTO RFX NEGATIVE (NEGATIVE); RBC, URINE AUTO RFX 2 /HPF (0-3); SPECIFIC GRAVITY UR AUTO RFX 1.013 (1.002-1.035); SQUAM EPITHELIAL CELL UR AURFX 1 /HPF (0-6); WBC, URINE AUTO RFX 4 /HPF (0-3)
[2017-05-02] MEDS: CEFDINIR 300 MG CAP (OMNICEF) PO (22:06)
[2017-05-03 05:59] LABS: BEDSIDE GLUCOSE 198 MG/DL (80-115)
[2017-05-03 05:59] LABS: BEDSIDE GLUCOSE 248 MG/DL (80-115)
[2017-05-03 05:59] LABS: BEDSIDE GLUCOSE 154 MG/DL (80-115)
[2017-05-03 05:59] LABS: BEDSIDE GLUCOSE 203 MG/DL (80-115)
[2017-05-03 05:59] LABS: BEDSIDE GLUCOSE 140 MG/DL (80-115)
[2017-05-03 05:59] LABS: BEDSIDE GLUCOSE 301 MG/DL (80-115)
[2017-05-03] MEDS ORDERED: LOPERAMIDE 2 MG CAP PO (06:45)
[2017-05-03 06:49] LABS: BASO # 0.1 10^3/uL (0.0-0.2); BASO % 0.4 % (0.0-1.0); EOS # 0.4 10^3/uL (0.0-0.50); EOS % 3.7 % (0.0-3.0); HEMATOCRIT 32.5 % (36.0-47.0); HEMOGLOBIN 10.8 g/dl (12.0-16.0); IMMATURE GRANULOCYTE % 0.3 % (0-3.0); LYMPH # 3.6 10^3/uL (1.5-4.5); LYMPH % 31.1 % (24.0-44.0); MEAN CORPUSCULAR HEMOGLOBIN 29.2 pg (27.0-33.0); MEAN CORPUSCULAR HGB CONC 33.2 g/dl (32.0-36.5); MEAN CORPUSCULAR VOLUME 87.8 fl (80.0-96.0); MONO # 1.1 10^3/uL (0.0-0.8); MONO % 9.3 % (0.0-5.0); NEUTROPHILS # 6.4 10^3/uL (1.8-7.7); NEUTROPHILS % 55.2 % (36.0-66.0); PLATELET COUNT, AUTOMATED 384 10^3/uL (150-450); RED CELL DISTRIBUTION WIDTH 14.6 % (11.5-14.5); WHITE BLOOD COUNT 11.5 10^3/uL (4.0-10.0)
[2017-05-03 07:05] LABS: ALBUMIN 2.7 GM/DL (3.2-5.2); ALBUMIN/GLOBULIN RATIO 0.68 (1.00-1.93); ALKALINE PHOSPHATASE 115 U/L (45-117); ALT/SGPT 21 U/L (12-78); ANION GAP 5 MEQ/L (8-16); AST/SGOT 13 U/L (7-37); BILIRUBIN,TOTAL 0.3 MG/DL (0.2-1.0); BLOOD UREA NITROGEN 18 MG/DL (7-18); CALCIUM LEVEL 8.4 MG/DL (8.8-10.2); CARBON DIOXIDE LEVEL 28 MEQ/L (21-32); CHLORIDE LEVEL 107 MEQ/L (98-107); CREATININE FOR GFR 0.84 MG/DL (0.55-1.30); GLOMERULAR FILTRATION RATE > 60.0 (>45); GLUCOSE, FASTING 237 MG/DL (70-100); SODIUM LEVEL 140 MEQ/L (136-145); TOTAL PROTEIN 6.7 GM/DL (6.4-8.2)
[2017-05-03] MEDS: PANTOPRAZOLE 40MG INJ (PROTONIX) (C9113) IV (09:00)
[2017-05-03] MEDS: LEVEMIR (INSULIN DETEMIR) 1 UNITS/0.01ML SC (09:44)
[2017-05-03] MEDS: HumaLOG INSULIN (NovoLOG) PER UNIT SC (09:44)
[2017-05-03] MEDS: METOCLOPRAMIDE 10 MG TAB PO (09:45)
[2017-05-03] MEDS: RANOLAZINE 500 MG ER TAB PO (09:45)
[2017-05-03] MEDS: ASPIRIN 81 MG ENTERIC TAB PO (09:45)
[2017-05-03] MEDS: BACLOFEN 10 MG TAB PO (09:45)
[2017-05-03] MEDS: LOPERAMIDE 2 MG CAP PO (09:45)
[2017-05-03] MEDS: GABAPENTIN 400 MG CAP PO (09:45)
[2017-05-03] MEDS: ATORVASTATIN 20 MG TAB PO (09:45)
[2017-05-03] MEDS: CEFDINIR 300 MG CAP (OMNICEF) PO (09:45)
[2017-05-03] MEDS: TICAGRELOR 90 MG TABLET (BRILINTA) PO (09:45)
[2017-05-03] MEDS: LOSARTAN 50 MG TAB PO (09:48)
[2017-05-03] MEDS: CARVedilol 12.5 MG TAB PO (09:49)
[2017-05-03] MEDS: ENOXAPARIN 40 MG/0.4 ML SYRINGE (J1650) SC (09:49)
[2017-05-03 14:14] LABS: TISSUE TRANSGLUTAMINASE IgA <2 U/mL (0-3)
[2017-05-03 22:12] LABS: BEDSIDE GLUCOSE 305 MG/DL (80-115)
== END 2017-05-03 12:45 | disposition home health service (06) | DRG 249 ==
LOC: M ED 21:39 → M MS5PR 05-01 16:35 → M ED INP 04-29 03:46 → M MS5PR 04-29 05:08
DX: A08.4 Viral intestinal infection, unspecified (principal); L89.152 Pressure ulcer of sacral region, stage 2; E11.43 Type 2 diabetes mellitus with diabetic autonomic (poly)neuropathy; N39.0 Urinary tract infection, site not specified; E11.65 Type 2 diabetes mellitus with hyperglycemia; G35 Multiple sclerosis; I10 Essential (primary) hypertension; I25.10 Atherosclerotic heart disease of native coronary artery without angina pectoris; I73.9 Peripheral vascular disease, unspecified; Z86.73 Personal history of transient ischemic attack (TIA), and cerebral infarction without residual deficits; M81.0 Age-related osteoporosis without current pathological fracture; Z79.82 Long term (current) use of aspirin; Z79.899 Other long term (current) drug therapy; Z88.2 Allergy status to sulfonamides